=== PATIENT | female | born 1985 | race Caucasian/White ===

== ENCOUNTER 2025-08-24 08:07 | Emergency (ER) | payer OTHER, SELFPAY ==
[2025-08-24 08:17] VITALS: BP 104/63; PULSE 84; RESP 18; TEMP 36.6; O2SAT 100
--- NOTE | 2025-08-24 08:22 | ED.WOUNDLAC ---
HPI - Wound/Laceration General Chief Complaint: Wound/Laceration Stated Complaint: Insect Bite Time Seen by Provider: 08/24/25 08:22 Source: patient, RN notes reviewed and old records reviewed Mode of arrival: ambulatory Limitations: no limitations History of Present Illness HPI narrative: 39 year female presents to [facility] care with complaints of walking in the late evening one week ago Monday and felt a sting or bite to her right thigh. She reports that since then she has developed redness to the right inner thigh with some itching and warmth to area and is concerned for infection. Patient has large area of redness with mild warmth around small scabbed bite on the inner thigh. Patient reports no fevers chills or any noted pustules or vesicles or any drainage from area. Patient reports that she has not applied any ointments or taken any OTC medication for her symptoms. Patient reports no fevers. Onset (ago): day(s) (1 week yesterday) Location: other (right thigh) Extremity Location: Right: thigh (inner thigh) Place: outdoors Treatments prior to arrival: other (none) Related Data Home Medications ?Medication ?Instructions ?Recorded ?Confirmed ?Last Taken ?Type bupropion HCl 100 mg tablet,12 hr mg PO 08/24/25 Unknown History sustained-release buspirone 10 mg tablet mg 08/24/25 Unknown History dextroamphetamine-amphetamine 10 08/24/25 Unknown History mg tablet divalproex 500 mg tablet,extended mg PO 08/24/25 Unknown History release 24 hr hydroxyzine HCl 50 mg tablet mg 08/24/25 Unknown History Allergies Allergy/AdvReac Type Severity Reaction Status Date / Time No Known Drug Allergies Allergy none Verified 08/24/25 08:20 Review of Systems Review of Systems: CONSTITUTIONAL: Denies fever, chills, or sweats. CARDIOVASCULAR: Denies chest pain, palpitations, or edema. RESPIRATORY: Denies cough or dyspnea. GASTROINTESTINAL: Denies abdominal pain, nausea, vomiting SKIN: Reports redness and swelling to right inner thigh after sustaining bite or sting to area last Monday when walking outdoors. Denies purulent drainage, vesicles, bullae, numbness, pain beyond proportion MUSCULOSKELETAL: Denies myalgia. NEUROLOGIC: Denies headache, numbness All systems reviewed & are unremarkable except as noted in HPI and below [facility] Past Medical History Medical History (Updated 08/24/25 @ 08:53 by Vicky Estrada APRN) Psychiatric care Anxiety and depression ADHD (attention deficit hyperactivity disorder) Surgical History Surgical History (Updated 08/24/25 @ 08:44 by Vicky Estrada APRN) Elizabeth teeth extracted Social History Social History (Updated 08/24/25 @ 08:45 by Vciky Estrada APRN) Smoking status: Current every day smoker Tobacco type: e-cigarettes/vaping Alcohol intake: unknown Substance use: unknown Gender identity (if verbalized by the patient): Female Comments At time of signature, agree with nursing past medical, surgical, social and family history. There is no relevant family history pertinent to the presenting complaint Exam Narrative: GENERAL: Well-appearing, well-nourished, and in no acute distress. HEAD: Normocephalic, atraumatic. EYES: PERRLA and EOMI. ENT: Nares clear, no rhinorrhea or epistaxis. Mucous membranes moist.TM's normal throat pink with no swelling or redness NECK: Supple. no lymphadenopathy CHEST: Clear to auscultation. No respiratory distress. SAO2 100% on room air HEART: Regular rate and rhythm. No murmur heard. Normal peripheral pulses. ABDOMEN: Soft, nontender, nondistended, normal active bowel sounds. EXTREMITIES: Normal range of motion. No edema. SKIN: Warm, dry. Erythema, minimal tenderness on palpation to right inner thigh,mild warmth with center scabbed bite marilu with 11cm X 11cm area of redness. No vesicles, bullae, necrosis, ecchymosis, crepitus noted. NEURO: No focal deficits. Alert and oriented x3. Course Course Emergency Course: Patient is aware of diagnosis, understands and agrees to treatment plan. Anticipatory guidance given. Patient agrees to follow-up as directed and is aware of reasons to seek care at the emergency department. Portions of this record may have been created with voice recognition software Level of Care: Express Care Visit Vital Signs Vital signs: Vital Signs Temperature 36.6 C 08/24/25 08:17 Pulse Rate 84 08/24/25 08:17 Respiratory Rate 18 08/24/25 08:17 Blood Pressure 104/63 08/24/25 08:17 Pulse Oximetry 100 08/24/25 08:17 Oxygen Delivery Room Air 08/24/25 08:17 Temperature 36.6 C 08/24/25 08:17 Pulse Rate 84 08/24/25 08:17 Respiratory Rate 18 08/24/25 08:17 Blood Pressure 104/63 08/24/25 08:17 Pulse Oximetry 100 08/24/25 08:17 Oxygen Delivery Room Air 08/24/25 08:17 Reviewed MDM - Wound/Laceration Differential Diagnosis Differential diagnosis: Likely other (cellulitis, contact dermatitis, insect bite or sting,) Medical Records Attestation: I reviewed the patient's medical records. Critical Care Time Critical Care Time Critical Care Time: No Discharge Plan Discharge Clinical Impression: Cellulitis of right thigh, Bite or sting by insect Patient Disposition: Home Condition: Stable Instructions: Antibiotic Form, Cellulitis (ED), Insect Bite or Sting (ED) Additional Instructions: Cleanse right thigh daily X2 with liquid Dial soap and warm water rinse apply triamcinolone ointment to area twice daily watch for any increasing infection--redness, swelling, drainage Tylenol or ibuprofen for any fever pain follow up with PCP in 7-10 days for a wound check recheck if develop fever, chills, increasing symptom Go to the ER if your symptoms become worse of if ANY new symptoms develop Zyrtec daily for 10 days, Pepcid daily for 10 days as prescribed Antibiotic of Keflex 500 mg 3 times daily for 7 days take all doses If your symptoms persist, change or worsen significantly before you can contact your personal physician then please, without delay, go to the emergency department for further evaluation. Follow-up with PCP in 7-10 days or sooner if needed Patient Language: [place] Prescriptions: New cephalexin 500 mg capsule 500 mg PO Q8H Qty: 20 0RF Rx Instructions: Take with food take all doses famotidine [Pepcid] 20 mg tablet 20 mg PO DAILY Qty: 10 0RF triamcinolone acetonide 0.1 % ointment 1 applic topical BID Qty: 80 0RF Rx Instructions: To right thigh for up to 14 days never apply this medication to the face No Action dextroamphetamine-amphetamine 10 mg tablet hydroxyzine HCl 50 mg tablet bupropion HCl 100 mg tablet sustained-release 12 hr PO buspirone 10 mg tablet divalproex 500 mg tablet extended release 24 hr PO Follow-up/Referrals: PHYSICIAN,[facility] [Primary Care Provider, Internal Medicine] Time of Disposition: 08:36 Quality Pietro Coma Scale Eyes: Open Verbal: Oriented and Alert Motor: Follows Commands Landing Coma Total Score: 15
== END 2025-08-24 08:45 | disposition home or self-care (01) ==
PROVIDERS: Emergency Provider Registered Nurse
DX: L03.115 Cellulitis of right lower limb (principal); S70.361A Insect bite (nonvenomous), right thigh, initial encounter; W57.XXXA Bitten or stung by nonvenomous insect and other nonvenomous arthropods, initial encounter; F17.290 Nicotine dependence, other tobacco product, uncomplicated; F90.9 Attention-deficit hyperactivity disorder, unspecified type; F41.9 Anxiety disorder, unspecified; F32.A Depression, unspecified
CPT/HCPCS: 99213; G0463